=== PATIENT | male | born 2000 | race Two or more races ===

== ENCOUNTER 2024-12-13 15:08 | Emergency (ER) | payer SELFPAY ==
[2024-12-13 15:11] VITALS: BP 125/75
--- NOTE | 2024-12-13 15:36 | EDRN ---
Patient was seen leaving the ED waiting room with father. Informed patient was frustrated of being stuck with needle twice for blood work.
== END 2024-12-13 15:42 | disposition left against medical advice (07) ==
LOC: EMR 15:08
PROVIDERS: EMERGENCY PHYSICIAN Emergency Medicine
DX: T63.301A Toxic effect of unspecified spider venom, accidental (unintentional), initial encounter (principal); Z53.21 Procedure and treatment not carried out due to patient leaving prior to being seen by health care provider
CPT/HCPCS: 99284